=== PATIENT | female | born 1940 | race Caucasian/White ===

== ENCOUNTER 2017-01-10 07:25 | Inpatient (IN) | payer OTHER ==
[2016-12-19 13:49] VITALS: BMI 26.0
--- NOTE | 2016-12-19 14:22 | PAT Medication Instructions ---
Service Date Dec 19, 2016. Current Home Medication List Acetaminophen (Tylenol), 500 MG PO TID PRN for N Amlodipine (Norvasc), 10 MG PO QAM Calcium Carbonate-Vitamin D (Calcium + D), 1 TAB PO BID Fexofenadine-Pseudoephedrine (Haleigh-D 24 Hour Allergy), 1 TAB PO HS Fluticasone Propionate (Nasal) (Flonase Allergy Relief), 1 SPRAY SWATHI QAM Hydrochlorothiazide (Hydrochlorothiazide), 1 TAB PO QAM Lisinopril (Zestril), 5 MG PO NOON Meclizine Hcl (Meclizine Hcl), 1 TAB PO TID PRN for RN Meloxicam (Mobic), 15 MG PO QAM Multiple Vitamins W/ Minerals (Icaps), 1 TAB PO NOON Probiotic Product (Probiotic), 1 TAB PO QAM Medication Instructions For Your Scheduled Surgery - Check with surgeon for instructions: Meloxicam (Mobic), 15 MG PO QAM - Hold the following medications the morning of surgery: Multiple Vitamins W/ Minerals (Icaps), 1 TAB PO NOON Probiotic Product (Probiotic), 1 TAB PO QAM Lisinopril (Zestril), 5 MG PO NOON Hydrochlorothiazide (Hydrochlorothiazide), 1 TAB PO QAM Calcium Carbonate-Vitamin D (Calcium + D), 1 TAB PO BID - Take the following medications the morning of surgery with a sip of water: Meclizine Hcl (Meclizine Hcl), 1 TAB PO TID PRN for RN (if needed) Fluticasone Propionate (Nasal) (Flonase Allergy Relief), 1 SPRAY SWATHI QAM Acetaminophen (Tylenol), 500 MG PO TID PRN for N (if needed) Amlodipine (Norvasc), 10 MG PO QAM - Hold the following medications as scheduled the night before surgery: Lisinopril (Zestril), 5 MG PO NOON - Take the following medications as scheduled the night before surgery: Meclizine Hcl (Meclizine Hcl), 1 TAB PO TID PRN for RN (if needed) Fluticasone Propionate (Nasal) (Flonase Allergy Relief), 1 SPRAY SWATHI QAM Fexofenadine-Pseudoephedrine (Haleigh-D 24 Hour Allergy), 1 TAB PO HS Calcium Carbonate-Vitamin D (Calcium + D), 1 TAB PO BID Acetaminophen (Tylenol), 500 MG PO TID PRN for N (if needed) If you have any questions please call us at [phone] or [phone] or [phone]
--- NOTE | 2016-12-19 15:09 | DIAGNOSTIC IMAGING REPORT ---
CHEST PREADMISSION(PA/LAT) CLINICAL HISTORY: PAT preoperative evaluation COMPARISON STUDY: No previous studies for comparison. FINDINGS: The bones soft tissues and hemidiaphragms are normal. The cardiomediastinal silhouette is normal. The lungs are clear. The pulmonary vasculature is normal. IMPRESSION: Negative chest. The above report was generated using voice recognition software. It may contain grammatical, syntax or spelling errors. Electronically signed by: Sunny Casarez M.D. 12/19/2016 3:08 PM Dictated Date/Time: 12/19/2016 3:08 PM
[2016-12-19 16:24] LABS: URINE APPEARANCE CLEAR (CLEAR); URINE BILIRUBIN NEG (NEG); URINE COLOR YELLOW; URINE NITRITE NEG (NEG); URINE PH 7.5 (4.5-7.5); URINE SPECIFIC GRAVITY 1.013 (1.000-1.030); UROBILINOGEN NEG (NEG); ZZUR CULT IF INDIC CLEAN CATCH NO
[2016-12-19 16:27] LABS: MANUAL MICROSCOPIC REQUIRED? NO; PARTIAL THROMBOPLASTIN RATIO 1.1; PROTHROMBIN TIME (PATIENT) 10.8 SECONDS (9.0-12.0); REVIEW REQ? NO
[2016-12-20 06:04] LABS: ESTIMATED AVERAGE GLUCOSE 120 mg/dl; HA1C FLAG Normal (Normal)
--- NOTE | 2017-01-09 10:45 | HISTORY & PHYSICAL EXAMINATION ---
DATE OF ADMISSION: 01/10/2017 CHIEF COMPLAINT: Right hip pain. HISTORY OF PRESENT ILLNESS: The patient is a 76-year-old female with known osteoarthritis about her bilateral hips, right worse than left. She has significant pain and disability with activities of daily living. She has pain with prolonged weightbearing and standing activities. She has difficulty with any kneeling, bending, or squatting activities. She is hesitant to take a lot of anti-inflammatories due to her other medication use. Due to her increasing pain and disability, she now desires to proceed with right total hip arthroplasty. PAST MEDICAL HISTORY: Hypertension. She states occasional irregular heartbeat, thyroid nodules, osteoarthritis, breast cancer. PAST SURGICAL HISTORY: Tonsillectomy, hemorrhoidectomy, foot surgery, thyroid biopsy, colonoscopy, lumpectomy with lymph node biopsy, steroid injections. MEDICATIONS: Haleigh-D daily, amlodipine 10 mg daily, calcium 600 plus D 200 units twice daily, fluticasone nasal spray daily, hydrochlorothiazide 12.5 mg daily, I-Caps 280 daily, Lactaid p.r.n., lisinopril 5 mg daily, meclizine 25 mg p.r.n. ALLERGIES: SHE IS LACTOSE INTOLERANT. SHE STATES PENICILLIN GAVE HER A RASH A LONG TIME AGO. SOCIAL HISTORY AND REVIEW OF SYSTEMS: Noncontributory. PHYSICAL EXAMINATION: GENERAL: Well-nourished, well-developed elderly female. HEAD, EYES, EARS, NOSE, AND THROAT: Normocephalic, atraumatic, extraocular movements intact, oropharynx pink and moist. NECK: Supple without adenopathy. LUNGS: Clear to auscultation bilaterally. HEART: Regular rate and rhythm. ABDOMEN: Soft, nontender, nondistended, obese. EXTREMITIES: The upper extremities are within normal limits. The right hip demonstrates limitation of range of motion. There is significant limitation of internal internal/external rotation with pain at end range. X-RAYS: X-rays were reviewed. She has moderate to severe osteoarthritis of her bilateral hips. The right hip demonstrates near complete loss of the joint space. There is evidence of subchondral sclerosis. There are osteophytes about the femoral head and acetabulum. ASSESSMENT: Right hip degenerative joint disease. PLAN: Risks versus benefits were discussed. Consent was obtained. The patient's primary care physician is Dr. Kristin Medina from the [facility]. Will proceed with right total hip arthroplasty upon preoperative workup and medical clearance.
[~2017-01-10] VITALS: Ht 157.5 cm; Wt 64.1 kg
[2017-01-10] VITALS (7 sets, daily range): BP systolic 122–181; BP diastolic 60–71; PULSE 65–93; TEMP 36.4–36.7; O2SAT 95–100; Ht 157.5 cm; Wt 64.1 kg
[~2017-01-10 07:25] MED LIST: ACET-1256 PO; AMLO-114 PO; BUPIVACAINE 0.5 % 5 MG/1 ML PF 10ML VIAL ONE; CALC600T9 PO; CLINDAMYCIN 600 MG/54 ML D5W IV SCH; FEXO1TAB58 PO; FLUT0.15 NAE; HYDR12.55 PO; LACTATED RINGER'S 1000ML 1,000 ML IV SCH; LACTATED RINGER'S 1000ML 500 ML IV ONE; LISI-729 PO; MECL1TAB42 PO; MELO7.5T5 PO; MISCCAP80 PO; MULTCAP98 PO
--- NOTE | 2017-01-10 08:14 | History & Physical Bridge Note ---
H&P Re-Evaluation Bridge Note: I have examined the patient, reviewed the History & Physical and in the interval since the performance of the History & Physical I have noted the following changes of clinical significance: No changes noted
[2017-01-10] MEDS ORDERED: MIDAZOLAM HCL 1 MG/ML 2ML VIAL ONE (08:33)
[2017-01-10] MEDS ORDERED: NURSING VERBAL MED ORDER ONE (08:45)
[2017-01-10] MEDS: TRANEXAMIC ACID INJ 1,000 MG in SODIUM CHLORIDE 0.9% 100ML 100 ML IV SCH ×2 (09:23→09:30)
[2017-01-10] MEDS ORDERED: POVIDONE-IODINE OP SOLN 30 ML BTL ONE (09:29)
[2017-01-10] MEDS ORDERED: BACITRACIN 50000 UNIT VIAL ONE (09:29)
[2017-01-10] MEDS ORDERED: ROPIVACAINE 5MG/ML 30 ML 150 MG, BUPIVACAINE/EPINEPHR 0.5% MPF 30 ML, KETOROLAC TROMETH... INFIL SCH ×7 (09:30)
[2017-01-10] MEDS ORDERED: ATROPINE SULFATE 0.1 MG/ML 5ML SYR IV PRN (09:45)
[2017-01-10] MEDS ORDERED: FENTANYL CITRATE INJ 50 MCG/1 ML 2 ML VIAL IV PRN (09:45)
[2017-01-10] MEDS ORDERED: ONDANSETRON INJ 2 MG/ML 2 ML VIAL IV PRN ×2 (09:45→11:30)
[2017-01-10] MEDS ORDERED: EpHEDrine SULFATE INJ 50 MG/ML AMP IV PRN (09:45)
[2017-01-10] MEDS ORDERED: FENTANYL CITRATE INJ 50 MCG/1 ML 2 ML VIAL ONE (09:51)
[2017-01-10] MEDS ORDERED: PROPOFOL IV EMULSION 10 MG/ML 20 ML VIAL IV ONE (10:15)
--- NOTE | 2017-01-10 10:57 | [facility] Post Operative Brief Note ---
Immediate Operative Summary Operative Date Jan 10, 2017. Pre-Operative Diagnosis Right hip degenerative joint disease Post-Operative Diagnosis Right hip degenerative joint disease Procedure(s) Performed Right Total Hip Arthroplasty - uncemented Surgeon Dr. Barron Manager Sound Surgeon(s) Manuel Zepeda PA-C Estimated Blood Loss 100 ml Findings severe OA Specimens A: Right femoral head Disposition Recovery Room / PACU
--- NOTE | 2017-01-10 11:19 | OPERATIVE REPORT ---
DATE OF OPERATION: 01/10/2017 PREOPERATIVE DIAGNOSIS: Osteoarthritis right hip. POSTOPERATIVE DIAGNOSIS: Osteoarthritis right hip. PROCEDURE: Right Accolade II total hip arthroplasty. SURGEON: Dr. Barron. DIGITAL MARKETING PROGRAM MANAGER: Manuel Zepeda PA-C. ANESTHESIA: Spinal. COMPLICATIONS: None. OPERATION AND FINDINGS: PROCEDURE: Following induction of adequate spinal anesthesia, the patient was placed in left lateral decubitus position and right Chang-Langenbeck incision was made. Subcutaneous tissue was sharply dissected. Electrocautery used for hemostasis. The fascia was incised throughout the length of the wound and a cruz scissor placed beneath the short external rotators. The pyriformis was tagged with #1 Vicryl. The short external rotators were divided from the posterior aspect of the femur using electrocautery. These were swept posteriorly. A T-capsulotomy incision was made and the hip was dislocated using a combination of flexion, adduction, and internal rotation. Exposure of the femoral neck with old-style Hohmann and a blunt Hohmann was carried out and a femoral rasp was utilized as a guide for making the appropriate level femoral neck cut. This bone fragment was removed and reserved on the back table. Next, attention was turned to the acetabulum where bone hook was used to retract the femur while the offset retractors were placed anterior and posteriorly. A double-angled Hohmann was placed in superior and anterior position exposing the acetabulum nicely. Acetabular labrum as well as posterior capsule elements were removed using a long knife and a long pickup. Fovea centralis was cleared of all soft tissue. Sequential reamings were carried up to a size 52 and decision was made to proceed with impaction of a size 52 trabecular metal cup. This was impacted and held using a single 35 mm bone screw. The acetabular liner was placed with 15 of elevated posterior wall in the superior and posterior position. Next, attention was turned to the femoral portion of the case where a Bovie and pickup was used to further clear short external rotators from their insertion on the femur. Box osteotome was used to gain access to the femoral canal and the T-handled rasp and a rattail rasp were used to further open and lateral the canal. Sequentially raspings were carried up to a #3 Accolade which gave good fit and fill of the proximal femur. A trial reduction was carried out and #3 offset femoral neck component was chosen as the size to be used. A 36 x -2.5 mm ceramic femoral head was impacted into position, +0 head was utilized. The trial reduction was stable in all degrees of rotation with no [id number] impingement. The hip was dislocated. The trial components were removed and the final femoral stem, neck, and femoral head combination were assembled on the back table and impacted into position. Hip was relocated. Range of motion checked once again successful and the wound was irrigated. The pyriformis repaired to the greater trochanter using #1 Vicryl [id number] suture. A Hemovac drain was placed and the fascia was closed using #1 Vicryl, subcutaneous tissue was closed using 0 Dexon, and skin was closed with julia. Sterile dressing of Adaptic, 4 x 4's, ABDs, and foam tape was applied. The patient tolerated the procedure well. Recovery room stable. Due to the complex nature of the procedure, the entire surgery was performed with the operational assistance of Manuel Zepeda PA-C. The hearing and speech assistant, under direct supervision, was involved in the actual performance of all aspects of the surgical procedure including hemostasis, tissue retraction and incision, instrument management, patient positioning, and wound closure. I attest to the content of the Intraoperative Record and any orders documented therein. Any exception s are noted below.
[2017-01-10] MEDS ORDERED: MAGNESIUM HYDROXIDE SUSP 30 ML UDC PO PRN (11:30)
[2017-01-10] MEDS ORDERED: MoRPHine SULFATE 2 MG/ML CARP IV PRN (11:30)
[2017-01-10] MEDS ORDERED: MoRPHine SULFATE 4 MG/ML 1 ML CARP\\VIAL IV PRN (11:30)
[2017-01-10] MEDS ORDERED: BISACODYL 10 MG SUPP PR PRN (11:30)
[2017-01-10] MEDS ORDERED: ALUMINUM/MAGNESIUM/SIMETH (MAALOX MAX) 30 ML UDC PO PRN (11:30)
--- NOTE | 2017-01-10 11:54 | DIAGNOSTIC IMAGING REPORT ---
AP PELVIS, CROSSTABLE LATERAL RIGHT HIP History: Right total hip arthroplasty. Degenerative arthritis. Postop. FINDINGS: The patient is status post a right total hip arthroplasty. The hardware is intact. No fracture or dislocation. Surgical drains are in place. IMPRESSION: Right total hip arthroplasty. No evidence for hardware complication Electronically signed by: Miguelito Ames M.D. 01/10/2017 11:53 AM Dictated Date/Time: 01/10/2017 11:51 AM
--- NOTE | 2017-01-10 12:54 | Anesthesiology Progress Note ---
Anesthesia Post Op Note Date & Time Jan 10, 2017 at 12:54 Vital Signs Pain Intensity: 0.0 Vital Signs Past 12 Hours Date Time Temp Pulse Resp B/P (MAP) Pulse Ox O2 Delivery O2 Flow Rate FiO2 01/10/17 12:10 Nasal Cannula 01/10/17 12:10 100 Nasal Cannula 2.0 01/10/17 12:10 36.4 72 14 145/71 (95) 100 Nasal Cannula 2.0 01/10/17 11:55 36.8 01/10/17 11:45 65 16 125/55 100 Nasal Cannula 2 01/10/17 11:35 76 16 123/59 100 Oxymask 10 01/10/17 11:25 65 16 106/46 100 Oxymask 10 01/10/17 11:19 36.4 64 16 114/50 100 Oxymask 10 01/10/17 08:03 36.6 93 18 181/71 98 Room Air Notes Mental Status: alert / awake / arousable, participated in evaluation Pt Amnestic to Procedure: Yes Nausea / Vomiting: adequately controlled Pain: adequately controlled Airway Patency, RR, SpO2: stable & adequate BP & HR: stable & adequate Hydration State: stable & adequate Neuraxial Anesthesia: was administered, sensory block is resolving Anesthetic Complications: no major complications apparent
[2017-01-10] MEDS: D5W AND 1/2NSS + 20MEQ KCL 1,000 ML IV SCH ×2 (13:25→22:22)
[2017-01-10] MEDS: TRAMADOL HCL 50 MG TAB PO PRN ×3 (17:15→22:23)
[2017-01-10] MEDS: FERROUS GLUCONATE 324 MG TAB PO SCH (18:07)
[2017-01-10] MEDS: CLINDAMYCIN IV 600 MG in DEXTROSE 5% 50ML 50 ML IV SCH (18:08)
[2017-01-10] MEDS: ACETAMINOPHEN 500 MG TAB PO SCH (18:08)
[2017-01-10] MEDS: SENNA 8.6 MG TAB PO SCH (21:00)
[2017-01-10] MEDS: DOCUSATE SODIUM 100 MG CAP PO SCH (21:00)
[2017-01-10] MEDS: ASPIRIN 81 MG ECTAB PO SCH (21:00)
[2017-01-11] MEDS: CLINDAMYCIN IV 600 MG in DEXTROSE 5% 50ML 50 ML IV SCH (02:23)
[2017-01-11] MEDS: ACETAMINOPHEN 500 MG TAB PO SCH ×3 (02:24→18:25)
[2017-01-11 03:42] VITALS: BP 122/65; PULSE 67; TEMP 36.4; O2SAT 98
[2017-01-11 07:17] VITALS: BP 137/64; PULSE 71; TEMP 36.5; O2SAT 98
[2017-01-11] MEDS: TRAMADOL HCL 50 MG TAB PO PRN ×3 (07:50→19:39)
--- NOTE | 2017-01-11 08:05 | Orthopedic Progress Note ---
Orthopedic Progress Note Date of Service Jan 11, 2017. Subjective Post OP Day: 1 Reports: feeling well Objective N/V intact, dressing C/D/I (Hemovac in place), toes mobile Date Time Temp Pulse Resp B/P (MAP) Pulse Ox O2 Delivery O2 Flow Rate FiO2 01/11/17 07:17 36.5 71 16 137/64 (88) 98 Room Air 01/11/17 03:42 36.4 67 16 122/65 (84) 98 Room Air 01/10/17 23:36 Room Air 01/10/17 22:50 36.5 74 16 127/64 (85) 98 Room Air 01/10/17 19:22 36.7 76 18 151/69 (96) 95 Room Air 01/10/17 15:30 Nasal Cannula 2.0 01/10/17 15:24 36.4 65 18 122/69 (86) 99 Nasal Cannula 3.0 01/10/17 14:10 36.4 69 17 127/65 (85) 100 Nasal Cannula 2.0 01/10/17 13:27 36.4 68 16 127/60 (82) 100 Nasal Cannula 2.0 01/10/17 12:10 Nasal Cannula 01/10/17 12:10 100 Nasal Cannula 2.0 01/10/17 12:10 36.4 72 14 145/71 (95) 100 Nasal Cannula 2.0 01/10/17 11:55 36.8 01/10/17 11:45 65 16 125/55 100 Nasal Cannula 2 01/10/17 11:35 76 16 123/59 100 Oxymask 10 01/10/17 11:25 65 16 106/46 100 Oxymask 10 01/10/17 11:19 36.4 64 16 114/50 100 Oxymask 10 Laboratory Results 24 Hours: Test 01/11/17 07:47 Additional Notes: Labs pending Assessment & Plan Assessment: 76 yo female stable POD #1 s/p right RUDI Plan: 1. Med management 2. DVT prophylaxis- ASA, SCDs 3. PT/OT 4. D/C planning- home w/ HH
--- NOTE | 2017-01-11 08:07 | Discharge Instructions ---
Discharge Instructions Date of Service Jan 11, 2017. Admission Reason for Admission: Right Hip Osteoarthritis Discharge Discharge Diagnosis / Problem: right hip arthritis Discharge Goals Goal(s): Decrease discomfort, Improve function Activity Recommendations Activity Limitations: as noted below Weightbearing Status: Right weightbearing (as tolerated) . Instructions / Follow-Up Instructions / Follow-Up ACTIVITY RECOMMENDATIONS: SELF CARE INSTRUCTIONS AFTER TOTAL HIP REPLACEMENT Until the incision and soft tissues around your hip have healed, there is a possibility that the hip prosthesis could dislocate. A. Observe the following precautions to prevent dislocation: 1. Don't bend your hip greater than 90 degrees. 2. Avoid crossing your legs or ankles while standing or lying. 3. Sit with your feet placed 6 inches apart. 4. When sitting, keep your knees below your hips. Sit on a firm surface, avoid deep, soft chairs and couches. Use an elevated toilet seat in the bathroom. 5. Don't bend over at the waist. Use a long handled shoehorn and a sock aid to help you put on your shoes and socks. A tool and die maker apprentice can help you roller picker objects that are too high or too low to reach. 6. Keep car riding to a minimum for at least one month after surgery. B. Your balance may be shaky for a while. Use crutches or a walker until directed by your doctor. C. Use hand rails when walking on stairs. D. Wear low heeled shoes with non-slip soles. E. Be sure that your floors are free of things that could trip you - throw rugs , electrical cords, small objects. Avoid wet and waxed floors, especially with crutches and canes. F. Try to walk several times a day with rest periods between. G. Continue with all the exercises taught to you in the hospital. Again, make walking a part of your daily routine. SPECIAL CARE INSTRUCTIONS: VERY IMPORTANT TO READ AND REVIEW A. You may still be at risk for phlebitis and blood clots. 1. Wear surgical stockings (GAVIOTA hose) for 2 weeks after surgery to improve circulation and reduce swelling. 2. Take Aspirin 81mg twice daily for 4 weeks or as directed by your doctor. This is your blood thinner. 3. High risk patients may be prescribed a stronger blood thinner if necessary. 4. If you are on Coumadin normally, your family doctor/hospital chief executive officer should monitor your blood work. Expect a phone call the day of or the day after bloodwork is drawn to adjust your dosage. B. You must take antibiotics before having dental work, bladder, bowel and other surgery. Your doctor will provide you with a permanent card to carry describing precautions. C. Call [facility] if you have a fever, redness or swelling around the incision, cloudy drainage from incision, or sudden increase in pain in your hip, not relieved by your regular pain medication. D. Please call the office at if you have any concerns or questions about your operation or recovery. * YOU MAY SHOWER, NO TUB BATHS UNTIL CLEARED BY YOUR DOCTOR. * WEAR GAVIOTA HOSE 20 HOURS PER DAY FOR 2 WEEKS. * YOU SHOULD USE A WALKER OR CRUTCHES FOR 2-4 WEEKS. THIS WILL HELP PREVENT STRAIN ON YOUR HIP MUSCLE AND ALLOW IT TO HEAL PROPERLY. YOU MAY WEAN TO A CANE TOLERATED. * MOST PATIENTS WILL HAVE HOME NURSING FOR THERAPY. IF YOU DECIDE TO DO OUTPATIENT PHYSICAL THERAPY, PLEASE SCHEDULE THIS 3 TIMES PER WEEK. INCISION CARE- YOU HAVE A ZIPLINE CLOSURE. THIS WILL REMAIN ON YOUR INCISION UNTIL YOUR 2 WEEK POST OP VISIT AND WILL BE REMOVED AT THE OFFICE. KEEP INCISION CLEAN AND DRY. MAY SHOWER, PAT DRY. FOLLOW UP VISIT: If appointment is not already scheduled: Please call [facility] to make a follow-up appointment for 2 weeks after your surgery at . Current Hospital Diet Patient's current hospital diet: Regular Diet Discharge Diet Recommended Diet: Regular Diet Procedures Procedures Performed: Right Total Hip Arthroplasty - uncemented Pending Studies Studies pending at discharge: no Laboratory Results Hemoglobin A1c Test 12/19/16 14:32 Range/Units Estimated Average Glucose 120 mg/dl Hemoglobin A1c 5.8 H 4.5-5.6 % Medical Emergencies . Who to Call and When: Medical Emergencies: If at any time you feel your situation is an emergency, please call 911 immediately. . Non-Emergent Contact Non-Emergency issues call your: Surgeon Call Non-Emergent contact if: temperature is above 101.5, your pain is not controlled, wound has increased drainage, wound has increased redness . "Provider Documentation" section prepared by Daniel Ortega PA-C. . VTE Core Measure Inpt VTE Proph given/why not?: Other Anticoagulation (ASA), T.E.D. Stockings, SCD's [place] Drug Monitoring Program Search Results: patient reviewed within database, no issues identified
[2017-01-11 08:09] LABS: BASO % 0.1 %; BASO ABS # 0.01 K/uL (0-0.2); COMPLETE YES; EOS % 0.6 %; HEMATOCRIT 35.9 % (37-47); IG% 0.4 %; LYMPH % 9.9 %; LYMPH ABS # 1.07 K/uL (1.2-3.4); MEAN CELL VOLUME 86.9 fL (80-100); MEAN CORPUSCULAR HEMOGLOBIN 29.3 pg (25-34); MEAN CORPUSCULAR HGB CONC 33.7 g/dl (32-36); MONO % 11.2 %; NEUT % 77.8 %; PLATELET COUNT 204 K/uL (130-400); RED BLOOD COUNT 4.13 M/uL (4.2-5.4); WHITE BLOOD COUNT 10.81 K/uL (4.8-10.8)
[2017-01-11 08:25] LABS: BUN/CREATININE RATIO 25.2 (10-20); CALCIUM 8.8 mg/dl (8.5-10.1); CREATININE 0.5 mg/dl (0.60-1.20); POTASSIUM 3.8 mmol/L (3.5-5.1)
--- NOTE | 2017-01-11 08:45 | Anesthesiology Progress Note ---
Anesthesia Post Op Note Date & Time Jan 11, 2017 at 08:45 Vital Signs Vital Signs Past 12 Hours Date Time Temp Pulse Resp B/P (MAP) Pulse Ox O2 Delivery O2 Flow Rate FiO2 01/11/17 07:17 36.5 71 16 137/64 (88) 98 Room Air 01/11/17 03:42 36.4 67 16 122/65 (84) 98 Room Air 01/10/17 23:36 Room Air 01/10/17 22:50 36.5 74 16 127/64 (85) 98 Room Air Notes Mental Status: alert / awake / arousable, participated in evaluation Pt Amnestic to Procedure: Yes Nausea / Vomiting: adequately controlled Pain: adequately controlled Airway Patency, RR, SpO2: stable & adequate BP & HR: stable & adequate Hydration State: stable & adequate Neuraxial Anesthesia: sensory block resolved Anesthetic Complications: no major complications apparent
[2017-01-11] MEDS: D5W AND 1/2NSS + 20MEQ KCL 1,000 ML IV SCH (08:52)
[2017-01-11] MEDS: FERROUS GLUCONATE 324 MG TAB PO SCH ×3 (10:35→18:24)
[2017-01-11] MEDS: FLUTICASONE PROPIONATE NA SPR 16 GM BTL NAE SCH (10:37)
[2017-01-11] MEDS: MULTIVITAMIN TAB PO SCH (10:38)
[2017-01-11] MEDS: ASPIRIN 81 MG ECTAB PO SCH ×2 (10:38→20:54)
[2017-01-11] MEDS: DOCUSATE SODIUM 100 MG CAP PO SCH ×2 (10:38→20:54)
[2017-01-11] MEDS: AMLODIPINE BESYLATE 5 MG TAB PO SCH (10:39)
[2017-01-11] MEDS: PANTOprazole SOD 40 MG TAB PO SCH (10:39)
[2017-01-11] MEDS: OXYCODONE HCL IR 5 MG TAB (IMMEDIATE RELEASE) PO PRN ×2 (10:49→15:21)
[2017-01-11 12:07] VITALS: BP 135/66; PULSE 69; O2SAT 97
[2017-01-11] MEDS: LISINOPRIL 5 MG TAB PO SCH (13:45)
[2017-01-11 14:54] VITALS: BP 106/60; PULSE 75; TEMP 36.4; O2SAT 97
[2017-01-11] MEDS ORDERED: NURSING VERBAL MED ORDER ONE (16:00)
[2017-01-11] MEDS: MECLIZINE HCL 12.5 MG TAB PO PRN (18:24)
[2017-01-11] MEDS: FEXOFENADINE HCL 180 MG TAB PO SCH (18:25)
[2017-01-11] MEDS: SENNA 8.6 MG TAB PO SCH (20:54)
[2017-01-11 23:37] VITALS: BP 122/58; PULSE 75; TEMP 36.7; O2SAT 96
[2017-01-12] MEDS: ACETAMINOPHEN 500 MG TAB PO SCH ×3 (01:05→18:28)
[2017-01-12] MEDS: OXYCODONE HCL IR 5 MG TAB (IMMEDIATE RELEASE) PO PRN ×2 (01:06→09:15)
[2017-01-12] MEDS: TRAMADOL HCL 50 MG TAB PO PRN ×3 (04:01→18:29)
[2017-01-12 07:51] VITALS: BP 142/57; PULSE 88; TEMP 36.8; O2SAT 93
--- NOTE | 2017-01-12 07:53 | Orthopedic Progress Note ---
Orthopedic Progress Note Date of Service Jan 12, 2017. Subjective Post OP Day: 1 Reports: feeling well, Denies: chest pain, SOB, nausea / vomiting, light headedness, calf pain Objective calves soft nontender, N/V intact, hip located, incision C/D/I (zipline), A&O x3 , toes mobile Date Time Temp Pulse Resp B/P (MAP) Pulse Ox O2 Delivery O2 Flow Rate FiO2 01/12/17 00:15 Room Air 01/11/17 23:37 36.7 75 14 122/58 (79) 96 Room Air 01/11/17 15:30 Room Air 01/11/17 14:54 36.4 75 12 106/60 (75) 97 Room Air 01/11/17 12:07 69 97 Assessment & Plan Assessment: 76 yo female stable POD #2 s/p right RUDI Plan: 1. Med management 2. DVT prophylaxis- ASA, SCDs 3. PT/OT 4. D/C planning- home w/ HH- DC HOME SATURDAY
[2017-01-12] MEDS: FLUTICASONE PROPIONATE NA SPR 16 GM BTL NAE SCH (09:13)
[2017-01-12] MEDS: ASPIRIN 81 MG ECTAB PO SCH ×2 (09:15→20:55)
[2017-01-12] MEDS: AMLODIPINE BESYLATE 5 MG TAB PO SCH (09:18)
[2017-01-12] MEDS: PANTOprazole SOD 40 MG TAB PO SCH (09:18)
[2017-01-12] MEDS: DOCUSATE SODIUM 100 MG CAP PO SCH ×2 (09:18→20:55)
[2017-01-12] MEDS: MULTIVITAMIN TAB PO SCH (09:19)
[2017-01-12] MEDS: FERROUS GLUCONATE 324 MG TAB PO SCH ×3 (09:19→17:45)
[2017-01-12 12:27] VITALS: BP 154/56
[2017-01-12] MEDS: LISINOPRIL 5 MG TAB PO SCH (12:48)
[2017-01-12 14:00] VITALS: BP 121/63; PULSE 88; TEMP 36.4; O2SAT 97
[2017-01-12] MEDS ORDERED: NURSING VERBAL MED ORDER ONE (15:00)
[2017-01-12 15:15] VITALS: BP 139/67; PULSE 77; TEMP 36.6; O2SAT 97
[2017-01-12] MEDS: FEXOFENADINE HCL 180 MG TAB PO SCH (18:26)
[2017-01-12] MEDS: MECLIZINE HCL 12.5 MG TAB PO PRN (18:27)
[2017-01-12] MEDS: SENNA 8.6 MG TAB PO SCH (20:55)
[2017-01-12 23:49] VITALS: BP 147/62; PULSE 84; TEMP 37.1; O2SAT 95
[2017-01-13] MEDS: TRAMADOL HCL 50 MG TAB PO PRN ×2 (00:01→10:31)
[2017-01-13] MEDS: ACETAMINOPHEN 500 MG TAB PO SCH ×2 (01:30→09:04)
[2017-01-13 07:16] VITALS: BP 169/63; PULSE 90; TEMP 36.8; O2SAT 97
--- NOTE | 2017-01-13 07:50 | Orthopedic Progress Note ---
Orthopedic Progress Note Date of Service Jan 13, 2017. Subjective Post OP Day: 3 Reports: feeling well, complaints (FEELING BLOATING. STATES SHE'S CONSTIPATED. NURSING NOTES DOCUMENT 3 BMS. STATES SHES PASSING GAS THIS AM.), Denies: chest pain, SOB, nausea / vomiting, light headedness, calf pain Objective calves soft nontender, N/V intact, hip located, incision C/D/I (ZIPLINE), A&O x3 , toes mobile ABDOMEN SOFT, MILDLY TENDER. Date Time Temp Pulse Resp B/P (MAP) Pulse Ox O2 Delivery O2 Flow Rate FiO2 01/13/17 07:16 36.8 90 18 169/63 (98) 97 Room Air 01/12/17 23:49 37.1 84 16 147/62 (90) 95 Room Air 01/12/17 23:30 Room Air 01/12/17 15:55 Room Air 01/12/17 15:15 36.6 77 20 139/67 (91) 97 Room Air 01/12/17 14:00 36.4 88 16 121/63 (82) 97 Room Air 01/12/17 12:27 154/56 (88) 01/12/17 08:00 Room Air 01/12/17 07:51 36.8 88 17 142/57 (85) 93 Room Air Assessment & Plan Assessment: 76 yo female stable POD #3 s/p right RUDI Plan: 1. Med management 2. DVT prophylaxis- ASA, SCDs 3. PT/OT 4. D/C planning- home w/ HH- DC HOME SATURDAY IF FEELING BETTER. 5. BOWEL REGIMEN. WILL ORDER SOME MIRALAX FOR HER THIS AM. SHE IS ALSO REQUESTING PROBIOTICS. RECOMMEND SENNA AT HOME. WILL NEED TO LIMIT NARCOTICS.
[2017-01-13] MEDS ORDERED: ACET-1256 PO (07:55)
[2017-01-13] MEDS ORDERED: ONDA8TAB6 PO (07:55)
[2017-01-13] MEDS ORDERED: RXC5 PO (07:55)
[2017-01-13 08:14] VITALS: BP 169/63; PULSE 90; TEMP 36.8; O2SAT 97
[2017-01-13] MEDS ORDERED: LACTOBACILLUS ACIDOPHILUS (FLORANEX) TAB PO SCH (09:00)
[2017-01-13] MEDS ORDERED: POLYETHYLENE (MIRALAX) 17 GM PACK PO SCH (09:00)
[2017-01-13] MEDS: ASPIRIN 81 MG ECTAB PO SCH (09:02)
[2017-01-13] MEDS: PANTOprazole SOD 40 MG TAB PO SCH (09:02)
[2017-01-13] MEDS: FLUTICASONE PROPIONATE NA SPR 16 GM BTL NAE SCH (09:02)
[2017-01-13] MEDS: FERROUS GLUCONATE 324 MG TAB PO SCH (09:02)
[2017-01-13] MEDS: DOCUSATE SODIUM 100 MG CAP PO SCH (09:02)
[2017-01-13] MEDS: AMLODIPINE BESYLATE 5 MG TAB PO SCH (09:03)
[2017-01-13] MEDS: MULTIVITAMIN TAB PO SCH (09:03)
--- NOTE | 2017-01-16 20:34 | DISCHARGE SUMMARY ---
DISCHARGE DIAGNOSIS: Degenerative joint disease, right hip. SECONDARY DIAGNOSES: Hypertension, irregular heartbeat, history of thyroid nodules, breast carcinoma. CONSULTS: None. COMPLICATIONS: None. PROCEDURES: Right total hip arthroplasty performed by Dr. Barron on 01/10/2017. BRIEF HISTORY: As dictated in the history and physical. HOSPITAL SUMMARY: The patient was admitted on the above-noted date and had the above-noted surgery performed which she tolerated well. On her first postoperative day, she was feeling well. Neurovascularly intact. Dressings clean, dry and intact. Toes were mobile. Her vital signs were stable. She was afebrile and she was started on physical therapy protocol and continued on DVT prophylaxis and pain management. Hemoglobin was 12.1. On her second postoperative day, she was feeling well. Calves were soft, nontender. Neurovascularly intact. Hip was located. Incision was benign. Toes were mobile. Vital signs were stable and she was continued on her protocol and was remaining stable. By her third postoperative day, she was complaining of feeling bloated and that she was constipated. Nursing notes had documented 3 BMs and she states that she was passing gas that morning. Denied chest pain, shortness of breath, nausea or vomiting. No calf pain or lightheadedness. Calves are soft, nontender. Neurovascularly intact. Hip was located. Incision was benign. Toes were mobile. Abdomen was soft and mildly tender. Vital signs were stable. She is afebrile. Plans were to start her on some MiraLax for that morning. She also was requesting probiotics. Plans were to recommend senna tablets at home and to limit her narcotics. She was otherwise remaining stable , progressed and was felt she could be discharged to home on 01/13/2017. For further review, please see chart. LABORATORY AND X-RAY DATA: As per chart. DISCHARGE INSTRUCTIONS: The patient was discharged to home in satisfactory condition on 01/13/2017. DIET: Regular. ACTIVITY: Follow RUDI instruction sheets and special care instructions. Weightbearing as tolerated, right lower extremity. Follow up with Dr. Barron in 2 weeks. The patient to call for appointment if one has not been made for you. DISCHARGE MEDICATIONS: Zofran 8 mg p.o. q. 8 hours p.r.n., oxycodone 5-10 mg p.o. q. 4 hours p.r.n. Resume amlodipine 10 mg p.o. q.a.m., calcium 1 tab p.o. b.i.d., Haleigh-D 1 tab p.o. at bedtime, Flonase nasal spray 1 spray nasally q.a.m., hydrochlorothiazide 12.5 mg p.o. q.a.m., lisinopril 5 mg p.o. at noon, meclizine 1 tab p.o. t.i.d. p.r.n., multivitamin 1 tab p.o. at noon, probiotic 1 tab p.o. q.a.m., acetaminophen changed to 1000 mg p.o. t.i.d. p.r.n. for 30 days. Stop taking Meloxicam.
== END 2017-01-13 11:43 | disposition home health service (06) | DRG 470 ==
LOC: C.ACU 07:25 → C.MSN 09:07 → ENRESERV 11:43
PROC: 0SR903Z Replacement of Right Hip Joint with Ceramic Synthetic Substitute, Open Approach (ICD-10-PCS; principal; 2017-01-10 10:00)
DX: M16.0 Bilateral primary osteoarthritis of hip (principal); K59.00 Constipation, unspecified; I49.9 Cardiac arrhythmia, unspecified; I10 Essential (primary) hypertension; Z79.1 Long term (current) use of non-steroidal anti-inflammatories (NSAID); Z79.899 Other long term (current) drug therapy

== ENCOUNTER 2017-09-16 09:08 | Inpatient (IN) | payer OTHER ==
[2017-08-14 12:55] VITALS: BMI 25.0
--- NOTE | 2017-08-14 13:27 | PAT Medication Instructions ---
Service Date Aug 14, 2017. Current Home Medication List Amlodipine (Norvasc), 10 MG PO QAM Aspirin (Aspirin Ec), 81 MG PO NOON Calcium Carbonate-Vitamin D (Calcium + D), 1 TAB PO BID Cetirizine (Zyrtec), 10 MG PO QPM Fluticasone Propionate (Nasal) (Flonase Allergy Relief), 1 SPRAY SWATHI QPM PRN for PRN Hydrochlorothiazide (Hydrochlorothiazide), 1 TAB PO QAM Lisinopril (Zestril), 5 MG PO NOON Meclizine Hcl (Meclizine Hcl), 1 TAB PO TID PRN for RN Meloxicam (Mobic), 15 MG PO QAM Multiple Vitamins W/ Minerals (Icaps), 1 TAB PO NOON Probiotic Product (Probiotic), 1 TAB PO QAM Medication Instructions For Your Scheduled Surgery - Check with surgeon for instructions: Meloxicam (Mobic), 15 MG PO QAM - Hold the following medications the morning of surgery: Calcium Carbonate-Vitamin D (Calcium + D), 1 TAB PO BID Hydrochlorothiazide (Hydrochlorothiazide), 1 TAB PO QAM Lisinopril (Zestril), 5 MG PO NOON Multiple Vitamins W/ Minerals (Icaps), 1 TAB PO NOON Probiotic Product (Probiotic), 1 TAB PO QAM - Take the following medications the morning of surgery with a sip of water: Meclizine Hcl (Meclizine Hcl), 1 TAB PO TID PRN for RN (if needed) Fluticasone Propionate (Nasal) (Flonase Allergy Relief), 1 SPRAY SWATHI QPM PRN for PRN (if needed) Aspirin (Aspirin Ec), 81 MG PO NOON Amlodipine (Norvasc), 10 MG PO QAM - Take the following medications as scheduled the night before surgery: Meclizine Hcl (Meclizine Hcl), 1 TAB PO TID PRN for RN (if needed) Fluticasone Propionate (Nasal) (Flonase Allergy Relief), 1 SPRAY SWATHI QPM PRN for PRN (if needed) Cetirizine (Zyrtec), 10 MG PO QPM If you have any questions please call us at [phone] or [phone] or [phone]
[2017-08-14 14:46] LABS: BASO % 0.6 %; BASO ABS # 0.03 K/uL (0-0.2); HEMATOCRIT 40.1 % (37-47); LYMPH % 23.4 %; LYMPH ABS # 1.19 K/uL (1.2-3.4); MEAN CELL VOLUME 85.5 fL (80-100); MEAN CORPUSCULAR HEMOGLOBIN 29.9 pg (25-34); MEAN CORPUSCULAR HGB CONC 34.9 g/dl (32-36); MEAN PLATELET VOLUME 9.1 fL (7.4-10.4); MONO % 11.2 %; MONO ABS # 0.57 K/uL (0.11-0.59); NEUT % 62.8 %; PLATELET COUNT 227 K/uL (130-400); RED CELL DISTRIBUTION WIDTH CV 12.1 % (11.5-14.5); RED CELL DISTRIBUTION WIDTH SD 37.3 fL (36.4-46.3); WHITE BLOOD COUNT 5.09 K/uL (4.8-10.8)
[2017-08-14 14:57] LABS: PTT PATIENT 28.2 SECONDS (21.0-31.0)
[2017-08-14 16:07] LABS: ALBUMIN 3.9 gm/dl (3.4-5.0); CALCIUM 9.6 mg/dl (8.5-10.1); CREATININE 0.54 mg/dl (0.60-1.20); POTASSIUM 3.4 mmol/L (3.5-5.1)
[2017-08-15 06:18] LABS: HEMOGLOBIN A1C 5.7 % (4.5-5.6)
--- NOTE | 2017-09-13 12:40 | HISTORY & PHYSICAL EXAMINATION ---
DATE OF ADMISSION: 09/16/2017 CHIEF COMPLAINT: Left hip pain. HISTORY OF PRESENT ILLNESS: The patient is a 76-year-old female with known osteoarthritis about her left hip. She has about 9 months status post successful right total hip arthroplasty. The replaced hip was doing well, but she continues to have pain and disability about the left hip. She has pain with prolonged weightbearing and standing activities. She has difficulty with any kneeling, bending, or squatting activities. Due to ongoing pain and disability, she now desires to proceed with left total hip arthroplasty. PAST MEDICAL HISTORY: Hypertension, hypercholesterolemia, osteoarthritis, breast cancer. PAST SURGICAL HISTORY: Left hip as above. MEDICATIONS: Amlodipine 10 mg daily, calcium plus D 1 tablet twice daily, fluticasone nasal spray daily, hydrochlorothiazide 12.5 mg daily, ICAPS 280-10 mg daily, Lactaid p.r.n., lisinopril 5 mg daily, meclizine 25 mg p.r.n., meloxicam 15 mg half pill daily, probiotic daily, atorvastatin 10 mg daily. ALLERGIES: PENICILLIN. SOCIAL HISTORY AND REVIEW OF SYSTEMS: Noncontributory. PHYSICAL EXAMINATION: GENERAL: Well-nourished, well-developed elderly female who appears her stated age. HEENT: Normocephalic, atraumatic, extraocular movements intact, oropharynx pink and moist. NECK: Supple without adenopathy. LUNGS: Clear to auscultation bilaterally. HEART: Regular rate and rhythm. ABDOMEN: Soft, nontender, nondistended. EXTREMITIES: The upper extremity within normal limits. The left hip demonstrates limited range of motion. There is limitation of active and passive internal/external rotation with pain at end range. X-RAYS: X-rays were reviewed. She has a well-aligned, well-fixed hip replacement on the right. The left hip shows severe osteoarthritis with complete loss of the joint space. There are large osteophytes about the femoral head and acetabulum. ASSESSMENT: Left hip degenerative joint disease. PLAN: Risks versus benefits were discussed, consent was obtained. Will proceed with left total hip arthroplasty as indicated.
[~2017-09-16] VITALS: Ht 157.5 cm; Wt 63.5 kg
[2017-09-16] MEDS: TRANEXAMIC ACID INJ 1,000 MG x 2 Bags IV SCH ×4 (06:30→11:49)
[~2017-09-16 09:08] MED LIST changes: -ACET-1256 PO; +ACETAMINOPHEN 500 MG TAB PO SCH; +ASPI81TA28 PO; +ATROPINE SULFATE 0.1 MG/ML 5ML SYR IV PRN; -BUPIVACAINE 0.5 % 5 MG/1 ML PF 10ML VIAL ONE; +CEFAZOLIN 1000MG IV PUSH 7.5 ML IV SCH; +CETI10TA84 PO; +CeleBREX 200 MG CAP PO SCH; +DEXAMETHASONE 4 MG TAB PO SCH; +EpHEDrine SULFATE INJ 50 MG/ML AMP IV PRN; +FAMOTIDINE 20 MG TAB PO SCH; -FEXO1TAB58 PO; +GABAPENTIN 300 MG CAP PO SCH; +HYDROmorphone INJ 2 MG/ML SYR/VIAL IV PRN; -LACTATED RINGER'S 1000ML 500 ML IV ONE; +LACTATED RINGER'S 1000ML 500 ML IV SCH; +METOCLOPRAMIDE HCL 10 MG TAB PO SCH; +ONDANSETRON INJ 2 MG/ML 2 ML VIAL IV PRN; +PHENYLEPHRINE 100MCG/ML 5ML SYR IV PRN
[2017-09-16 09:57] VITALS: BP 139/65; PULSE 91; TEMP 36.8; O2SAT 98; Ht 157.5 cm; Wt 63.5 kg
[2017-09-16] MEDS ORDERED: FENTANYL CITRATE INJ 50 MCG/1 ML 2 ML VIAL ONE (10:27)
[2017-09-16] MEDS ORDERED: MIDAZOLAM HCL 1 MG/ML 2ML VIAL ONE (10:28)
[2017-09-16] MEDS ORDERED: POVIDONE-IODINE OP SOLN 30 ML BTL ONE (11:07)
[2017-09-16] MEDS ORDERED: ORTHO JOINT ANESTHETIC ONE (11:07)
[2017-09-16] MEDS ORDERED: BACITRACIN 50000 UNIT VIAL ONE (11:07)
[2017-09-16] MEDS ORDERED: BUPIVACAINE 0.5 % 5 MG/1 ML PF 10ML VIAL ONE (11:54)
[2017-09-16] MEDS: ROPIVACAINE 5MG/ML 30 ML 150 MG, BUPIVACAINE 0.5% MPF INJ 30 ML, EpINEphrine HCL INJ 0.... INFIL SCH ×8 (12:31)
[2017-09-16] MEDS ORDERED: PROPOFOL IV EMULSION 10 MG/ML 20 ML VIAL ONE (12:54)
[2017-09-16] MEDS ORDERED: EpHEDrine SULFATE 50MG/5ML SYR ONE (12:55)
[2017-09-16] MEDS ORDERED: ONDANSETRON INJ 2 MG/ML 2 ML VIAL ONE (12:55)
[2017-09-16] MEDS ORDERED: LIDOCAINE HCL 2% 2 ML VIAL (20MG/ML) ONE (12:55)
[2017-09-16] MEDS ORDERED: PHENYLEPHRINE 100MCG/ML 5ML SYR ONE (13:05)
--- NOTE | 2017-09-16 13:13 | [facility] Post Operative Brief Note ---
Immediate Operative Summary Operative Date September 16, 2017. Pre-Operative Diagnosis Left Hip Degenerative Joint Disease Post-Operative Diagnosis Left Hip Degenerative Joint Disease Procedure(s) Performed Left Total Hip Arthroplasty--Uncemented Surgeon Dr. Barron Vehicle Window Tinter Surgeon(s) ROWAN Mcbride Estimated Blood Loss 100 ml Findings Consistent with Post-Op Diagnosis Specimens A. Left Femoral Head Drains None Anesthesia Type MAC Spinal Regional Complication(s) none Disposition Accompanied Pt To Recover: no Disposition: Recovery Room / PACU
[2017-09-16] MEDS ORDERED: ONDANSETRON INJ 2 MG/ML 2 ML VIAL IV PRN (13:45)
[2017-09-16] MEDS ORDERED: FLUTICASONE PROPIONATE NA SPR 16 GM BTL NAE PRN (13:45)
[2017-09-16] MEDS ORDERED: BISACODYL 10 MG SUPP PR PRN (13:45)
[2017-09-16] MEDS ORDERED: TRAMADOL HCL 50 MG TAB PO PRN (13:45)
[2017-09-16] MEDS ORDERED: ALUMINUM/MAGNESIUM/SIMETH (MAALOX MAX) 30 ML UDC PO PRN (13:45)
[2017-09-16] MEDS ORDERED: MAGNESIUM HYDROXIDE SUSP 30 ML UDC PO PRN (13:45)
[2017-09-16] MEDS ORDERED: OXYCODONE HCL IR 5 MG TAB (IMMEDIATE RELEASE) PO PRN (13:45)
[2017-09-16] MEDS ORDERED: MoRPHine SULFATE 4 MG/ML 1 ML CARP\\VIAL IV PRN (13:45)
--- NOTE | 2017-09-16 13:54 | OPERATIVE REPORT ---
DATE OF OPERATION: 09/16/2017 PREOPERATIVE DIAGNOSIS: Osteoarthritis, left hip. POSTOPERATIVE DIAGNOSIS: Osteoarthritis, left hip. PROCEDURE: Left Kiana total hip arthroplasty. SURGEON: Dr. Barron. LOSS PREVENTION SUPERVISOR: ROWAN Mcbride. ANESTHESIA: Spinal. COMPLICATIONS: None. OPERATION AND FINDINGS: Acetabular reamer used 50, acetabular shell 50, femoral stem 4, femoral head +0 x 36 mm ceramic, with a 127 degree neck. DESCRIPTION OF PROCEDURE: Following induction of adequate spinal anesthesia, the patient was placed in right lateral decubitus position and left Chang-Langenbeck incision was made. Subcutaneous tissue was sharply dissected. Electrocautery used for hemostasis. The fascia was incised throughout the length of the wound and a cruz scissor placed beneath the short external rotators. The pyriformis was tagged with #1 Vicryl. The short external rotators were divided from the posterior aspect of the femur using electrocautery. These were swept posteriorly. A T-capsulotomy incision was made, and the hip was dislocated using a combination of flexion, adduction, and internal rotation. Exposure of the femoral neck with old-style Hohmann and a blunt Hohmann was carried out and a femoral rasp was utilized as a guide for making the appropriate level femoral neck cut. This bone fragment was removed and reserved on the back table. Next, attention was turned to the acetabulum where bone hook was used to retract the femur while the offset retractors were placed anterior and posteriorly. A double-angled Hohmann was placed in superior and anterior position exposing the acetabulum nicely. Acetabular labrum as well as posterior capsule elements were removed using a long knife and a long pickup. Fovea centralis was cleared of all soft tissue. Sequential reamings were carried up to a 50 and decision was made to proceed with impaction of a 50 trabecular metal cup. This was impacted and held using a single 35 mm bone screw. The acetabular liner was placed with 15 of elevated posterior wall in the superior and posterior position. Next, attention was turned to the femoral portion of the case where a Bovie and pickup was used to further clear short external rotators from their insertion on the femur. Box osteotome was used to gain access to the femoral canal and the T-handled rasp and a rattail rasp were used to further open and lateral the canal. Sequentially raspings were carried up to a 4 which gave good fit and fill of the proximal femur. A trial reduction was carried out and a 127 degree femoral neck component was chosen as the size to be used. A +0 x 36 mm ceramic femoral head was impacted into position, +0 head was utilized. The trial reduction was stable in all degrees of rotation with no [id number] impingement. The hip was dislocated. The trial components were removed and the final femoral stem, neck, and femoral head combination were assembled on the back table and impacted into position. Hip was relocated. Range of motion checked once again successful and the wound was irrigated. The pyriformis repaired to the greater trochanter using #1 Vicryl [id number] suture. A Hemovac drain was placed and the fascia was closed using #1 Vicryl, subcutaneous tissue was closed using 0 Dexon, and skin was closed with julia. Sterile dressing of Adaptic, 4x4s, ABDs, and foam tape was applied. The patient tolerated the procedure well. Due to the complex nature of the procedure, the entire surgery was performed with the operational assistance of ROWAN Mcbride. The creative assistant, under direct supervision, was involved in the actual performance of all aspects of the surgical procedure including hemostasis, tissue retraction and incision, instrument management, patient positioning, and wound closure. I attest to the content of the Intraoperative Record and any orders documented therein. Any exception s are noted below.
--- NOTE | 2017-09-16 14:20 | DIAGNOSTIC IMAGING REPORT ---
L PELVIS/UNILATERAL HIP 1 VIEW CLINICAL HISTORY: 76 years-old Female presenting with IN PACU - A/P PELVIS and LATERAL HIP INCLUDING ALL OF IMPLANT. TECHNIQUE: Single frontal view of the pelvis and crosstable lateral view of the left hip were obtained. COMPARISON: 01/10/2017. FINDINGS: There has been interval total left hip arthroplasty. A surgical drain is in place. Expected soft tissue emphysema. No periprosthetic fracture. No malalignment. Unchanged appearance of the total right hip arthroplasty. Remainder of the pelvis is intact. IMPRESSION: Expected postsurgical appearance status post total left hip arthroplasty. Electronically signed by: Jeramie Lambert M.D. 09/16/2017 2:19 PM Dictated Date/Time: 09/16/2017 2:17 PM
--- NOTE | 2017-09-16 14:23 | Anesthesiology Progress Note ---
Anesthesia Post Op Note Date & Time September 16, 2017 at 14:22 Vital Signs Pain Intensity: 0 Vital Signs Past 12 Hours Date Time Temp Pulse Resp B/P (MAP) Pulse Ox O2 Delivery O2 Flow Rate FiO2 09/16/17 13:58 76 14 09/16/17 13:58 77 14 100 09/16/17 13:56 114/56 09/16/17 13:53 81 16 100 09/16/17 13:53 80 16 09/16/17 13:52 74 17 09/16/17 13:52 78 17 100 09/16/17 13:50 127/64 09/16/17 13:48 37.4 90 16 134/61 (103) 100 Oxymask 10 09/16/17 13:47 79 20 100 09/16/17 13:47 73 20 09/16/17 13:45 126/70 09/16/17 13:42 90 21 09/16/17 13:42 89 21 100 09/16/17 13:40 120/67 09/16/17 13:39 134/61 09/16/17 13:37 88 25 09/16/17 13:37 92 25 100 09/16/17 09:57 36.8 91 18 139/65 98 Room Air Notes Mental Status: alert / awake / arousable, participated in evaluation Pt Amnestic to Procedure: Yes Nausea / Vomiting: adequately controlled Pain: adequately controlled Airway Patency, RR, SpO2: stable & adequate BP & HR: stable & adequate Hydration State: stable & adequate Anesthetic Complications: no major complications apparent
[2017-09-16 16:00] VITALS: BP 131/67; PULSE 80; TEMP 36.5; O2SAT 99
[2017-09-16 16:30] VITALS: BP 121/65; PULSE 77; TEMP 36.5; O2SAT 98
[2017-09-16] MEDS: ACETAMINOPHEN 500 MG TAB PO SCH ×2 (17:15→22:29)
[2017-09-16 17:32] VITALS: BP 120/61; PULSE 75; TEMP 36.5; O2SAT 99
[2017-09-16] MEDS: FERROUS GLUCONATE 324 MG TAB PO SCH (17:56)
[2017-09-16 18:51] VITALS: BP 148/63; PULSE 89; TEMP 36.7; O2SAT 95
[2017-09-16] MEDS: CLINDAMYCIN IV 600 MG in DEXTROSE 5% 50ML 50 ML IV SCH (20:08)
[2017-09-16] MEDS: DOCUSATE SODIUM 100 MG CAP PO SCH (21:08)
[2017-09-16] MEDS: ASPIRIN 81 MG ECTAB PO SCH (21:08)
[2017-09-16] MEDS: SENNA 8.6 MG TAB PO SCH (21:08)
[2017-09-16] MEDS: CETIRIZINE HCL 10 MG TAB PO SCH (21:08)
[2017-09-16] MEDS: CeleBREX 200 MG CAP PO SCH (21:09)
[2017-09-16] MEDS: D5W AND 1/2NSS + 20MEQ KCL 1,000 ML IV SCH (22:30)
[2017-09-16 22:45] VITALS: BP 123/63; PULSE 85; TEMP 36.3; O2SAT 97
[2017-09-17] VITALS (7 sets, daily range): BP systolic 113–131; BP diastolic 55–72; PULSE 75–88; TEMP 36.3–36.9; O2SAT 95–99
[2017-09-17] MEDS: CLINDAMYCIN IV 600 MG in DEXTROSE 5% 50ML 50 ML IV SCH (03:36)
[2017-09-17] MEDS: D5W AND 1/2NSS + 20MEQ KCL 1,000 ML IV SCH ×2 (03:36→12:00)
[2017-09-17 06:09] LABS: HEMATOCRIT 31.6 % (37-47); HEMOGLOBIN 10.9 g/dL (12.0-16.0); IG# 0.02 K/uL (0.00-0.02); LYMPH % 4.7 %; LYMPH ABS # 0.51 K/uL (1.2-3.4); MEAN CELL VOLUME 85.4 fL (80-100); MEAN CORPUSCULAR HEMOGLOBIN 29.5 pg (25-34); MEAN CORPUSCULAR HGB CONC 34.5 g/dl (32-36); MEAN PLATELET VOLUME 8.9 fL (7.4-10.4); MONO % 8.9 %; MONO ABS # 0.97 K/uL (0.11-0.59); NEUT % 86.2 %; NEUT ABS # 9.42 K/uL (1.4-6.5); PLATELET COUNT 188 K/uL (130-400); RED CELL DISTRIBUTION WIDTH SD 37.4 fL (36.4-46.3); WHITE BLOOD COUNT 10.92 K/uL (4.8-10.8)
[2017-09-17] MEDS: ACETAMINOPHEN 500 MG TAB PO SCH ×3 (06:09→21:50)
[2017-09-17 06:38] LABS: CREATININE 0.51 mg/dl (0.60-1.20); POTASSIUM 3.8 mmol/L (3.5-5.1)
--- NOTE | 2017-09-17 08:13 | Orthopedic Progress Note ---
Orthopedic Progress Note Date of Service September 17, 2017. Subjective Post OP Day: 1 Reports: feeling well, Denies: complaints Additional Notes: Pt sitting up in chair at bedside. Objective calves soft nontender, N/V intact, hip located, dressing C/D/I, A&O x3, toes mobile Date Time Temp Pulse Resp B/P (MAP) Pulse Ox O2 Delivery O2 Flow Rate FiO2 09/17/17 08:05 36.4 75 12 120/66 (84) 98 Room Air 09/17/17 07:00 36.8 82 17 113/55 (74) 97 09/17/17 03:28 36.9 88 18 120/61 (80) 97 Room Air 09/16/17 23:30 Room Air 09/16/17 22:45 36.3 85 18 123/63 (83) 97 Room Air 09/16/17 18:51 36.7 89 18 148/63 (91) 95 Room Air 09/16/17 17:32 36.5 75 16 120/61 (80) 99 Nasal Cannula 2.0 09/16/17 16:30 36.5 77 18 121/65 (83) 98 Nasal Cannula 2.0 09/16/17 16:00 36.5 80 16 131/67 (88) 99 Nasal Cannula 2.0 09/16/17 15:45 Nasal Cannula 2.0 09/16/17 15:45 Nasal Cannula 2.0 09/16/17 15:15 102/52 09/16/17 15:12 80 19 98 09/16/17 15:12 79 19 09/16/17 15:11 79 18 99 09/16/17 15:11 81 18 09/16/17 15:10 117/49 09/16/17 15:06 76 26 09/16/17 15:06 77 26 98 09/16/17 15:05 100/49 09/16/17 15:01 79 16 98 09/16/17 15:01 80 16 09/16/17 15:00 118/51 09/16/17 14:56 80 19 99 09/16/17 14:56 78 19 09/16/17 14:55 119/57 09/16/17 14:51 81 24 99 09/16/17 14:51 77 24 09/16/17 14:50 124/55 09/16/17 14:46 78 18 99 5/7/18 14:46 73 18 09/16/17 14:45 112/52 09/16/17 14:41 96 23 99 09/16/17 14:41 88 23 09/16/17 14:40 118/57 09/16/17 14:36 87 25 99 09/16/17 14:36 87 25 09/16/17 14:35 75 24 09/16/17 14:35 89 24 122/59 89 09/16/17 14:34 37.3 82 21 122/59 (73) 98 Nasal Cannula 2 09/16/17 14:30 95 24 110/55 100 09/16/17 14:30 90 24 09/16/17 14:29 78 21 09/16/17 14:29 78 21 99 09/16/17 14:25 118/50 09/16/17 14:24 78 19 09/16/17 14:24 75 19 99 09/16/17 14:20 119/53 09/16/17 14:19 72 17 09/16/17 14:19 76 17 99 09/16/17 14:15 119/57 09/16/17 14:14 73 14 09/16/17 14:14 86 14 100 09/16/17 14:10 120/55 09/16/17 14:09 85 15 100 09/16/17 14:09 85 15 09/16/17 14:06 109/50 09/16/17 14:04 86 20 09/16/17 14:04 86 20 100 09/16/17 14:00 109/71 09/16/17 13:59 77 15 09/16/17 13:59 77 15 100 09/16/17 13:58 76 14 09/16/17 13:58 77 14 100 09/16/17 13:56 114/56 09/16/17 13:53 81 16 100 09/16/17 13:53 80 16 09/16/17 13:52 74 17 09/16/17 13:52 78 17 100 09/16/17 13:50 127/64 09/16/17 13:48 37.4 90 16 134/61 (103) 100 Oxymask 10 09/16/17 13:47 79 20 100 09/16/17 13:47 73 20 09/16/17 13:45 126/70 5/7/18 13:42 90 21 09/16/17 13:42 89 21 100 09/16/17 13:40 120/67 09/16/17 13:39 134/61 09/16/17 13:37 88 25 09/16/17 13:37 92 25 100 09/16/17 09:57 36.8 91 18 139/65 98 Room Air Laboratory Results 24 Hours: Test 09/17/17 05:43 White Blood Count 10.92 K/uL Red Blood Count 3.70 M/uL Hemoglobin 10.9 g/dL Hematocrit 31.6 % Mean Corpuscular Volume 85.4 fL Mean Corpuscular Hemoglobin 29.5 pg Mean Corpuscular Hemoglobin Concent 34.5 g/dl Platelet Count 188 K/uL Mean Platelet Volume 8.9 fL Neutrophils (%) (Auto) 86.2 % Lymphocytes (%) (Auto) 4.7 % Monocytes (%) (Auto) 8.9 % Eosinophils (%) (Auto) 0.0 % Basophils (%) (Auto) 0.0 % Neutrophils # (Auto) 9.42 K/uL Lymphocytes # (Auto) 0.51 K/uL Monocytes # (Auto) 0.97 K/uL Eosinophils # (Auto) 0.00 K/uL Basophils # (Auto) 0.00 K/uL Assessment & Plan Assessment: POD 1 s/p Left RUDI Plan: PT/OT Planning for HH PT upon dc Inhouse Planning Pain Management: Celebrex, Ultram, Morphine, PO Tylenol, Oxy IR DVT Prophylaxis: TEDs, SCDs, ASA Discharge Planning Discharge Planning: home with home health
--- NOTE | 2017-09-17 08:17 | Discharge Instructions ---
Discharge Instructions Date of Service September 17, 2017. Admission Reason for Admission: Left Hip Osteoarthritis Discharge Discharge Diagnosis / Problem: Left Hip Djd Discharge Goals Goal(s): Decrease discomfort, Improve function, Increase independence Activity Recommendations Activity Limitations: per Instructions/Follow-up section Weightbearing Status: Left weightbearing (as tolerated) . Instructions / Follow-Up Instructions / Follow-Up ACTIVITY RECOMMENDATIONS: SELF CARE INSTRUCTIONS AFTER TOTAL HIP REPLACEMENT Until the incision and soft tissues around your hip have healed, there is a possibility that the hip prosthesis could dislocate. A. Observe the following precautions to prevent dislocation: 1. Don't bend your hip greater than 90 degrees. 2. Avoid crossing your legs or ankles while standing or lying. 3. Sit with your feet placed 6 inches apart. 4. When sitting, keep your knees below your hips. Sit on a firm surface, avoid deep, soft chairs and couches. Use an elevated toilet seat in the bathroom. 5. Don't bend over at the waist. Use a long handled shoehorn and a sock aid to help you put on your shoes and socks. A studio assistant can help you citrus picker objects that are too high or too low to reach. 6. Keep car riding to a minimum for at least one month after surgery. B. Your balance may be shaky for a while. Use crutches or a walker until directed by your doctor. C. Use hand rails when walking on stairs. D. Wear low heeled shoes with non-slip soles. E. Be sure that your floors are free of things that could trip you - throw rugs , electrical cords, small objects. Avoid wet and waxed floors, especially with crutches and canes. F. Try to walk several times a day with rest periods between. G. Continue with all the exercises taught to you in the hospital. Again, make walking a part of your daily routine. SPECIAL CARE INSTRUCTIONS: VERY IMPORTANT TO READ AND REVIEW A. You may still be at risk for phlebitis and blood clots. 1. Wear surgical stockings (GAVIOTA hose) for 2 weeks after surgery to improve circulation and reduce swelling. 2. Take Aspirin 81mg twice daily for 4 weeks or as directed by your doctor. This is your blood thinner. 3. High risk patients may be prescribed a stronger blood thinner if necessary. 4. If you are on Coumadin normally, your family doctor/dumper bailer operator should monitor your blood work. Expect a phone call the day of or the day after bloodwork is drawn to adjust your dosage. B. You must take antibiotics before having dental work, bladder, bowel and other surgery. Your doctor will provide you with a permanent card to carry describing precautions. C. Call [facility] if you have a fever, redness or swelling around the incision, cloudy drainage from incision, or sudden increase in pain in your hip, not relieved by your regular pain medication. D. Please call the office at if you have any concerns or questions about your operation or recovery. * YOU MAY SHOWER, NO TUB BATHS UNTIL CLEARED BY YOUR DOCTOR. * WEAR GAVIOTA HOSE 20 HOURS PER DAY FOR 2 WEEKS. * YOU SHOULD USE A WALKER OR CRUTCHES FOR 2-4 WEEKS. THIS WILL HELP PREVENT STRAIN ON YOUR HIP MUSCLE AND ALLOW IT TO HEAL PROPERLY. YOU MAY WEAN TO A CANE TOLERATED. * MOST PATIENTS WILL HAVE HOME NURSING FOR THERAPY. IF YOU DECIDE TO DO OUTPATIENT PHYSICAL THERAPY, PLEASE SCHEDULE THIS 3 TIMES PER WEEK. * You have a Zipline Closure System. As noted below, this keeps your incision closed. Change the dressing daily. Keep the wound covered with a dressing as it has the potential to snag on your clothing. The Zipline will remain on for a total of 2 weeks. Do not remove it! You may shower with this on. Do not soak it; no tub baths. You will be given instructions by nursing staff at the time of discharge to care for your Zip Closure System. This devices uses plastic straps to keep your incision closed and protected throughout your recovery. If you have any questions please refer to these instructions [phone]. FOLLOW UP VISIT: If appointment is not already scheduled: Please call [facility] to make a follow-up appointment for 2 weeks after your surgery at . Current Hospital Diet Patient's current hospital diet: Regular Diet Discharge Diet Recommended Diet: Regular Diet Procedures Procedures Performed: Left Total Hip Arthroplasty--Uncemented Pending Studies Studies pending at discharge: no Laboratory Results Hemoglobin A1c Test 08/14/17 13:32 Range/Units Estimated Average Glucose 117 mg/dl Hemoglobin A1c 5.7 H 4.5-5.6 % Medical Emergencies . Who to Call and When: Medical Emergencies: If at any time you feel your situation is an emergency, please call 911 immediately. . Non-Emergent Contact Non-Emergency issues call your: Surgeon Call Non-Emergent contact if: temperature is above 101.5, your pain is not controlled, your pain is worsening, wound has increased drainage, wound has increased redness . "Provider Documentation" section prepared by Manuel Zepeda. . [place] Drug Monitoring Program Search Results: patient reviewed within database, no issues identified
[2017-09-17] MEDS: ASPIRIN 81 MG ECTAB PO SCH ×2 (08:42→21:02)
[2017-09-17] MEDS: FERROUS GLUCONATE 324 MG TAB PO SCH ×3 (08:42→18:58)
[2017-09-17] MEDS: MULTIVITAMIN TAB PO SCH (08:42)
[2017-09-17] MEDS: CeleBREX 200 MG CAP PO SCH ×2 (08:42→21:03)
[2017-09-17] MEDS: DOCUSATE SODIUM 100 MG CAP PO SCH ×2 (08:42→21:02)
[2017-09-17] MEDS: AMLODIPINE BESYLATE 5 MG TAB PO SCH (08:43)
--- NOTE | 2017-09-17 10:28 | Anesthesiology Progress Note ---
Anesthesia Post Op Note Date & Time September 17, 2017 at 10:27 Vital Signs Pain Intensity: 1.0 Vital Signs Past 12 Hours Date Time Temp Pulse Resp B/P (MAP) Pulse Ox O2 Delivery O2 Flow Rate FiO2 09/17/17 08:10 98 Room Air 09/17/17 08:05 36.4 75 12 120/66 (84) 98 Room Air 09/17/17 07:45 Room Air 09/17/17 07:00 36.8 82 17 113/55 (74) 97 09/17/17 03:28 36.9 88 18 120/61 (80) 97 Room Air 09/16/17 23:30 Room Air 09/16/17 22:45 36.3 85 18 123/63 (83) 97 Room Air Notes Mental Status: alert / awake / arousable, participated in evaluation Pt Amnestic to Procedure: Yes Nausea / Vomiting: adequately controlled Pain: adequately controlled Airway Patency, RR, SpO2: stable & adequate BP & HR: stable & adequate Hydration State: stable & adequate Neuraxial Anesthesia: was administered, sensory block resolved Anesthetic Complications: no major complications apparent
[2017-09-17] MEDS: LISINOPRIL 5 MG TAB PO SCH (12:03)
[2017-09-17] MEDS: SENNA 8.6 MG TAB PO SCH (21:48)
[2017-09-17] MEDS: CETIRIZINE HCL 10 MG TAB PO SCH (21:48)
[2017-09-18] MEDS: ACETAMINOPHEN 500 MG TAB PO SCH ×2 (05:28→14:52)
--- NOTE | 2017-09-18 07:33 | Orthopedic Progress Note ---
Orthopedic Progress Note Date of Service September 18, 2017. Subjective Post OP Day: 2 Reports: feeling well, Denies: complaints Objective calves soft nontender, N/V intact, hip located, incision C/D/I, A&O x3, toes mobile Date Time Temp Pulse Resp B/P (MAP) Pulse Ox O2 Delivery O2 Flow Rate FiO2 09/18/17 01:00 Room Air 09/17/17 22:52 36.7 80 18 131/59 (83) 98 Room Air 09/17/17 15:20 Room Air 09/17/17 15:16 36.3 80 16 117/64 (81) 95 Room Air 80 09/17/17 11:18 36.3 81 14 124/72 (89) 99 Room Air 09/17/17 08:10 98 Room Air 09/17/17 08:05 36.4 75 12 120/66 (84) 98 Room Air 09/17/17 07:45 Room Air Assessment & Plan Assessment: POD 2 s/p Left RUDI Plan: PT/OT Planning for HH PT upon dc Plan for dc to home today Inhouse Planning Pain Management: Celebrex, Ultram, Morphine, PO Tylenol, Oxy IR DVT Prophylaxis: TEDs, SCDs, ASA Discharge Planning Discharge Planning: home with home health
[2017-09-18] MEDS ORDERED: ACET-24 PO (07:43)
[2017-09-18] MEDS ORDERED: CLB200 PO (07:43)
[2017-09-18] MEDS ORDERED: RXC5 PO (07:43)
[2017-09-18] MEDS ORDERED: SENN-61 PO (07:43)
[2017-09-18] MEDS ORDERED: ASPI81TA28 PO (07:43)
[2017-09-18] MEDS: DOCUSATE SODIUM 100 MG CAP PO SCH (08:36)
[2017-09-18] MEDS: FERROUS GLUCONATE 324 MG TAB PO SCH ×2 (08:36→12:30)
[2017-09-18] MEDS: MULTIVITAMIN TAB PO SCH (08:37)
[2017-09-18] MEDS: AMLODIPINE BESYLATE 5 MG TAB PO SCH (08:37)
[2017-09-18 08:45] VITALS: BP 133/70; PULSE 70; TEMP 36.4; O2SAT 98
[2017-09-18] MEDS ORDERED: ULT50X PO ×2 (08:52→08:57)
[2017-09-18] MEDS ORDERED: TRAMADOL HCL 50 MG TAB PO PRN (09:00)
[2017-09-18] MEDS ORDERED: LOPERAMIDE HCL 2 MG CAP PO STA (11:14)
[2017-09-18] MEDS: CeleBREX 200 MG CAP PO SCH (11:24)
[2017-09-18] MEDS: ASPIRIN 81 MG ECTAB PO SCH (11:24)
[2017-09-18] MEDS: LISINOPRIL 5 MG TAB PO SCH (11:25)
[2017-09-18 12:41] VITALS: BP 133/70; PULSE 70; TEMP 36.4; O2SAT 98
== END 2017-09-18 15:24 | disposition home health service (06) | DRG 470 ==
LOC: C.ACU 09:08 → C.3E 11:48 → ENRESERV 14:46
PROC: 0SRB03A Replacement of Left Hip Joint with Ceramic Synthetic Substitute, Uncemented, Open Approach (ICD-10-PCS; principal; 2017-09-16 11:45)
DX: M16.12 Unilateral primary osteoarthritis, left hip (principal); I10 Essential (primary) hypertension; E78.00 Pure hypercholesterolemia, unspecified; Z96.641 Presence of right artificial hip joint; Z85.3 Personal history of malignant neoplasm of breast; Z79.1 Long term (current) use of non-steroidal anti-inflammatories (NSAID); Z79.899 Other long term (current) drug therapy; Z88.0 Allergy status to penicillin; Z98.890 Other specified postprocedural states